=== PATIENT | female | born 1955 | race Caucasian/White ===

== ENCOUNTER 2024-09-30 19:27 | Inpatient (IN) | payer OTHER ==
[~2024-09-30] VITALS: Ht 149.9 cm; Wt 49.9 kg
[2024-09-30 20:00] VITALS: BP 133/65; TEMP 97.5; O2SAT 98
[2024-09-30] MEDS ORDERED: ENOXAPARIN SODIUM 40 MG/0.4 ML DISP.SYRIN SQ SCH (20:30)
[2024-09-30] MEDS ORDERED: BRIM5DRO11 RIGHTEYE (21:16)
[2024-09-30] MEDS ORDERED: ASPI-1169 PO (21:16)
[2024-09-30] MEDS ORDERED: LEVO25TA7 PO (21:16)
[2024-09-30] MEDS ORDERED: ROSU40TA PO (21:16)
[2024-09-30] MEDS: SIMVASTATIN 40 MG TABLET PO SCH (22:37)
[2024-09-30] MEDS ORDERED: SIMVASTATIN 20 MG TABLET ONE (22:39)
[2024-10-01] VITALS: BP 109/53; TEMP 98.1; O2SAT 99
[2024-10-01] MEDS: BRIMONIDINE TARTRATE OPHT SOLN 5 ML BOTTLE EACHEYE SCH (00:59)
[2024-10-01] MEDS: CLOPIDOGREL BISULFATE 75 MG TABLET PO SCH (01:17)
[2024-10-01 04:00] VITALS: BP 118/84; TEMP 97.9; O2SAT 99
[2024-10-01 08:00] VITALS: BP 123/58; TEMP 97.3; O2SAT 100
[2024-10-01 08:06] LABS: BASOPHILS % (AUTO) 0.4 % (0.0-2.0); EOSINOPHILS # (AUTO) 0.1 K/uL (0.0-0.7); EOSINOPHILS % (AUTO) 2.7 % (0.0-6.0); HEMATOCRIT 36 % (33-45); HEMOGLOBIN 12.3 g/dL (11.5-14.8); LYMPHOCYTES # (AUTO) 1.8 K/uL (0.8-4.8); LYMPHOCYTES % (AUTO) 38.2 % (20.0-44.0); MEAN CORPUSCULAR HEMOGLOBIN 29 PG (26.0-33.0); MEAN CORPUSCULAR HGB CONC 34 g/dl (31.0-36.0); MEAN CORPUSCULAR VOLUME 85 fL (82-100); MONOCYTES # (AUTO) 0.3 K/uL (0.1-1.30); MONOCYTES % (AUTO) 5.6 % (2.0-12.0); NEUTROPHILS # (AUTO) 2.6 K/uL (1.8-8.9); NEUTROPHILS % (AUTO) 53.1 % (43.0-81.0); PLATELET COUNT (AUTO) 205 K/uL (150-450); RED BLOOD CELL COUNT(AUTO) 4.23 MIL/uL (4.0-5.2); RED CELL DISTRIBUTION WIDTH 14.3 % (11.5-15.0); WHITE BLOOD COUNT (AUTO) 4.8 K/uL (4.3-11.0)
[2024-10-01] MEDS: LEVOTHYROXINE SODIUM 25 MCG TABLET PO SCH (08:07)
[2024-10-01] MEDS: PANTOPRAZOLE 40 MG TABLET.DR PO SCH (08:07)
[2024-10-01 08:31] LABS: CREATININE 0.7 mg/dL (0.6-1.3); POTASSIUM 4.2 mmol/L (3.5-5.1)
[2024-10-01] MEDS: ASPIRIN 81 MG TAB.CHEW PO SCH (09:22)
[2024-10-01 16:00] VITALS: BP 108/59; TEMP 98.2; O2SAT 98
[2024-10-01 20:00] VITALS: BP 99/61; TEMP 98.2; O2SAT 99
[2024-10-01] MEDS ORDERED: SIMVASTATIN 20 MG TABLET PO SCH (22:00)
[2024-10-01] MEDS ORDERED: ATORVASTATIN 40 MG TABLET PO SCH (22:00)
== END 2024-10-01 20:25 | disposition home or self-care (01) | DRG 65 ==
LOC: TELE 19:27 → MED 10-01 13:41
PROVIDERS: ADMIT Student in an Organized Health Care Education/Training Program
DX: I63.9 Cerebral infarction, unspecified (principal); I69.354 Hemiplegia and hemiparesis following cerebral infarction affecting left non-dominant side; E03.9 Hypothyroidism, unspecified; E78.5 Hyperlipidemia, unspecified; Z79.82 Long term (current) use of aspirin
CPT/HCPCS: 36415; 80048-TC; 80061-TC; 82607-TC; 83921; 85025-TC; 93307-TC; 97110-TC; 97116-TC; 97530-TC; G0378